=== PATIENT | male | born 1980 ===

== ENCOUNTER → 2017-12-12 | Emergency (ER) | payer BC ==
[~2017-12-12] VITALS: Ht 170.2 cm; Wt 75.7 kg
[~2017-12-12] MED LIST: ATENOLOL50 MG; CELEBREX100 MG PO; CLONAZEPAM1 M1 PO; ORPH100T PO; PROTONIX20 MG
== END | disposition home or self-care (01) ==
LOC: ER 13:21
DX: R10.11 Right upper quadrant pain (principal); R10.31 Right lower quadrant pain